=== PATIENT | female | born 1965 | race Caucasian/White ===

== ENCOUNTER 2023-01-17 13:40 | Outpatient (CLI) | payer MEDICARE, BC, SELFPAY ==
--- NOTE | 2023-01-17 14:00 | CRLHL7_ITS ---
For Patients: As a result of the Century Cures Act, medical imaging exams and procedure reports are released immediately into your electronic medical record. You may view this report before your referring provider. If you have questions, please contact your health care provider. DXA BONE MINERAL DENSITY STUDY Current height (in): 60.0. Weight (lb): 180.0. Menopause age: 39. Ethnicity: White. Reason for exam: Osteopenia. 1. Have you had a previous hip or vertebral fracture? No. 2. Have you had any fractures during your adult life which did not result from significant trauma (e.g., auto accident)? No. 3. Did either of your parents have a hip fracture? No. 4. Do you smoke? No. 5. Have you ever taken Glucocorticoids? No. 6. Do you have rheumatoid arthritis? No. 7. Do you have secondary osteoporosis? No. 8. Do you drink 3 or more alcoholic drinks per day? No. 9. Are you being treated for osteoporosis? No. 10. Have you ever taken any of the following medications: Actonel, Evista, Fosamax, Miacalcin, Reclast, Boniva, Forteo, HRT (i.e. estrogen/hormone therapy), Protelos, Prolia, Vitamin D, Calcium, other ??? please specify. ANSWER: Yes, vitamin D, Forteo, HRT, calcium. 11. Do you have any of the following medical conditions: Anorexia or bulimia, asthma or emphysema, end stage renal disease, hyperparathyroidism, any seizure disorders, cancer, inflammatory bowel diseases, hysterectomy, other ??? please specify. ANSWER: Yes, hysterectomy. 12. What was your maximum height (inches)? 60. 13. Do you perform weight bearing exercise regularly? No. 14. Do you regularly consume dairy products? Yes. 15. Do you drink caffeinated beverages? Yes. 16. At what age did your period start? 8. 17. Are you premenopausal? No. 18. How many full term pregnancies have you had? 1. 19. Have you ever missed your period for more than 6 months in a row (not including or menopause)? Yes. TECHNIQUE: Bone mineral density study was performed using the [employer]. FINDINGS: The results of the study expressed as bone mineral density (BMD) are as follows: Neck Left: BMD: 0.669 g/cm2. T-score: -1.6. Z-score: -0.4. Right: BMD: 0.617 g/cm2. T-score: -2.1. Z-score: -0.9. Total Left: BMD: 0.779 g/cm2. T-score: -1.3. Z-score: -0.5. Right: BMD: 0.800 g/cm2. T-score: -1.2. Z-score: -0.3. Radius Left 33%: BMD: 0.629 g/cm2. T-score: -1.1. Z-score: 0.1. IMPRESSION: Osteopenia. FRAX 10-year Fracture Risk Major Osteoporotic Fracture: 8.5 percent Hip Fracture: 1.0 percent Reported Risk Factors: [place] () Neck BMD = 0.617, BMI = 35.2 Db Lemon M.D. Diagnostic Radiologist [email or web address] Transcribed: 9:31 a.m. DW/Dictated by: Db Lemon MD @ 01/18/2023 8:52:00 AM (Electronically Signed)
== END 2023-01-17 13:41 | disposition home or self-care (01) ==
PROVIDERS: PCP Internal Medicine; Visit Provider Internal Medicine
DX: M85.89 Other specified disorders of bone density and structure, multiple sites (principal); Z78.0 Asymptomatic menopausal state
CPT/HCPCS: 77080

== ENCOUNTER 2023-10-15 09:24 | Outpatient (CLI) | payer MEDICARE, BC, SELFPAY | END 2023-10-15 09:25 | disposition home or self-care (01) | LOC: NFLDREF 10-18 13:14 | PROVIDERS: PCP Internal Medicine; Referring Provider Internal Medicine; Visit Provider Internal Medicine | DX: E03.9 Hypothyroidism, unspecified (principal) | CPT/HCPCS: 84443 ==

== ENCOUNTER 2024-04-07 15:26 | Emergency (ER) | payer MEDICARE, BC, SELFPAY ==
[2024-04-07 15:29] VITALS: BP 126/88; PULSE 100; RESP 18; TEMP 36.8; O2SAT 98; BMI 29.3
--- OUTSIDE RECORDS SUMMARY | 2024-04-07 15:38 | XMS_ITS | Clinical Summary ---
Author Name Unknown Organization [employer] [facility] Address [place], [place] [address] Care Team Providers Care Pediatrics Physician Name Role Phone Jaime Velasco MD Primary Care Provider Kristyn Cabrera COMPLETIONS MANAGER Unavailable Bienvenido Winters MD Unavailable [phone] Allergies Active Allergy Reactions Criticality Noted Date Comments Amoxicillin Rash 10/29/2017 Diphenhydramine-Pseudoephed Seizures 12/31/19 15 Codeine Vomiting 12/31/2014 Erythromycin Rash 12/31/2014 Latex Rash 10/05/2018 Morphine Hallucinations 12/31/2014 Medications Medication Sig Dispensed Refills Start Date End Date Status levothyroxine (SYNTHROID) 88 mcg tablet Take 88 mcg by mouth once daily. Active polyethylene glycoL (MIRALAX) 17 gram/dose powderIndications:con stipation Mix 17 grams with 4-8 oz of water, juice or tea, and drink resulting solution daily 527 g 01/06/2015 Active Additional Information Patient taking differently:OralDAILY PRN, Take 4 times per week, Indications: constipation, Reported on 10/05/2018 Cholecalciferol, Vitamin D3, (VITAMIN D-3) 2,000 unit tablet Take 2,000 Units by mouth once daily. Active multivitamin (MVI) tablet Take 1 tablet by mouth once daily. Active estradiol (ESTRACE) 0.1 mg/g vaginal cream Insert 1 g into the vagina. Twice weekly Active ondansetron (ZOFRAN ODT) [address] 4 mg on the tongue 2 times daily if needed for Nausea/Vomiting. Active Melatonin 5 mg tab Take 5 mg by mouth at bedtime. Active clonazePAM (KLONOPIN) 0.5 mg tabletIndications:Chay izoaffective disorder, bipolar type (HC) Take 0.5 tablets by mouth 2 times daily. 60 tablet 07/29/2019 Active QUEtiapine (SEROQUEL XR) 300 mg Extended-Release tabletIndications:Chay izoaffective disorder, bipolar type (HC) Take 3 tablets by mouth at bedtime. 90 tablet 07/29/2019 Active topiramate (TOPAMAX) 50 mg tabletIndications:Chay izoaffective disorder, bipolar type (HC) Take 1 tablet by mouth 2 times daily. 60 tablet 07/29/2019 Active buPROPion (WELLBUTRIN XL) 300 mg Extended-Release tabletIndications:Chay izoaffective disorder, bipolar type (HC) Take 1 tablet by mouth every morning. 30 tablet 07/29/2019 Active lamoTRIgine (LAMICTAL) 200 mg tabletIndications:Chay izoaffective disorder, bipolar type (HC) Take 1 tablet by mouth 2 times daily. 60 tablet 07/29/2019 Active risperiDONE (RISPERDAL) 0.5 mg tabletIndications:Chay izoaffective disorder, bipolar type (HC) Take 1 tablet by mouth 2 times daily. 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 Bipolar disease, chronic 10/05/2018 Prolonged Q-T interval on ECG 10/05/2018 Elevated lactic acid level 10/05/2018 Hypokalemia 10/05/2018 Rhabdomyolysis 10/05/2018 Acute renal failure (ARF) 10/05/2018 Hypothermia associated with environmental change 10/05/2018 Alcohol dependence 01/01/2015 Schizoaffective disorder 01/01/2015 Vitamin D deficiency 01/01/2015 Noncompliance with treatment 01/01/2015 Immunizations Name Administration Dates Next Due Influenza, IIV4 01/02/2015 Family History Medical History Relation Name Comments Diabetes Daughter Diabetes Father Cancer-breast Maternal Grandfather Relation Name Status Comments Daughter Father Maternal Grandfather Social History Tobacco Use Types Packs/Day Years Used Date Smoking Tobacco: Never Smokeless Tobacco: Never Tobacco Cessation:Counseling Given: No Alcohol Use Standard Drinks/Week Comments No 0 (1 standard drink = 0.6 oz pur e alcohol) Sex and Gender Information Value Date Recorded Sex Assigned at Not on file Gender Identity Not on file Sexual Orientation Not on file Obstetrics History Last Filed Vital Signs Vital Sign Reading Time Taken Comments Blood Pressure 150/99 07/29/2019 4:00 PM CDT Pulse 114 07/29/2019 4:00 PM CDT Temperature 36.7 ??C (98 ??F) 07/29/2019 4:00 PM CDT Respiratory Rate 16 07/29/2019 4:00 PM CDT Oxygen Saturation 99% 07/29/2019 4:00 PM CDT Inhaled Oxygen Concentration - - Weight 73.5 kg (162 lb) 07/26/2019 9:00 AM CDT Height 152.4 cm (5') 07/22/2019 7:27 PM CDT Body Mass Index 31.64 07/22/2019 7:27 PM CDT Plan of Treatment Not on file Advance Directives * Full Code (Latest Code Status on File) Date Activated Date Inactivated Comments 07/22/2019 7:21 PM 07/30/2019 1:16 PM Question Answer Comments Code Status Discussion: Not Discussed * Full Code Date Activated Date Inactivated Comments 10/05/2018 11:39 AM 10/07/2018 7:45 PM Question Answer Comments Code Status Discussion: Discussed * Full Code Date Activated Date Inactivated Comments 12/31/2014 8:52 PM 01/06/2015 7:17 PM Care Teams Pediatrics Physician Relationship Specialty Start Date End Date Jaime Velasco MD [address] [place] [id number] PCP - General Internal Medicine 10/05/18 Kristyn Cabrera CNS [address] [place] [address] [place] [id number] Clinical Nurse Specialist 10/05/18 Bienvenido Winters MD [address] [place] [address] [place] [id number] Neurology 10/05/18
--- NOTE | 2024-04-07 15:53 | ED.NURSE ---
talked with poison controlRandal. no concerns at this time. no tests or workup needed
--- NOTE | 2024-04-07 16:10 | ED.GENADULT ---
HPI - General Adult General Chief complaint: Unspecified Complaint, Adult Stated complaint: took her daily meds 2 or 3 times accidently Time Seen by Provider: 04/07/24 15:49 History of Present Illness HPI narrative: This 59-year-old female comes in because she accidentally took her morning medications in the middle of the night apparently and then again at the morning. The worst she arrives now about 8-10 hours later and reports that she is feeling okay except has some jittery feelings at times. Earlier she was feeling some off balance sensation. Related Data Home Medications Medication Instructions Recorded Confirmed aripiprazole 10 mg tablet (Abilify) 10 mg PO QDAY 06/13/22 07/23/23 bupropion HCl 300 mg 24 hr tablet, 300 mg PO QAM 06/13/22 07/23/23 extended release (Wellbutrin XL) cholecalciferol (vitamin D3) 50 50 mcg PO QDAY 06/13/22 07/23/23 mcg (2,000 unit) capsule clozapine 100 mg tablet (Clozaril) 300 mg PO .hs 06/13/22 07/23/23 duloxetine 30 mg capsule,delayed 30 mg PO QDAY 06/13/22 07/23/23 release ferrous sulfate 325 mg (65 mg 325 mg PO .hs 06/13/22 07/23/23 iron) tablet propranolol 10 mg tablet 10 mg PO TID PRN 06/13/22 07/23/23 risperidone 0.5 mg tablet 0.5 mg PO BID 06/13/22 07/23/23 (Risperdal) Previous Rx's Medication Instructions Recorded lamotrigine 150 mg tablet 75 mg (1/2 x 150 mg) PO BID Mood 01/04/23 Disorder #90 tabs levothyroxine 88 mcg tablet 88 mcg PO QDAY Hypothyroidism #90 10/17/23 (Synthroid) tabs donepezil 5 mg tablet 5 mg PO QDAY Memory Loss #90 tabs 12/24/23 lansoprazole 30 mg capsule,delayed 30 mg PO QDAY GERD #90 caps 12/24/23 release topiramate 50 mg tablet (Topamax) 50 mg PO BID #180 tabs 01/17/24 Allergies Allergy/AdvReac Type Severity Reaction Status Date / Time amoxicillin Allergy Severe Rash Verified 07/23/23 10:04 codeine Allergy Severe Nausea Verified 07/23/23 10:04 diphenhydramine Allergy Severe Seizure Verified 07/23/23 10:04 latex Allergy Severe red, Verified 07/23/23 10:04 burning skin morphine Allergy Mild Hallucinati Verified 07/23/23 10:04 ng banana Allergy Unknown Verified 07/23/23 10:04 fluoxetine AdvReac Severe aggression Verified 07/23/23 10:04 lurasidone AdvReac Severe Joint Pain Verified 07/23/23 10:04 Erythromycin Allergy Severe Rash Uncoded 07/23/23 10:04 Review of Systems Status of ROS: Reports: 10 or more systems reviewed and unremarkable except as noted in History and below Narrative: Constitutional: No fevers, no weight gain or loss. Eyes: No discharge. No vision changes. HENT: No congestion, no sore throat, no ear pain. Cardiovascular: No chest pain, no palpitations. Respiratory: No shortness of breath, no wheezes, no cough. Gastrointestinal: No abdominal pain, no vomiting, no diarrhea. Genitourinary: No dysuria, no hematuria. Musculoskeletal: Normal range of motion. Skin: No rashes, no pruritis. Neurological: No dizziness, weakness, sensory change, speech change. Endo/Heme/Allergies: No bruising or bleeding. No polydipsia. Pysch: no suicidality, no anxiety, no insomnia. All other systems reviewed and are negative. 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) ?Z86.19 - Personal history of other infectious and parasitic diseases (ICD-10) History of bulimia nervosa ?Z86.59 - Personal history of other mental and behavioral disorders (ICD-10) Encounter for screening for severe acute respiratory syndrome coronavirus 2 (SARS-CoV-2) infection ?Z11.52 - Encounter for screening for COVID-19 (ICD-10) Surgical History (Updated 06/11/22 @ 14:48 by Ashley Palacios) History of hysterectomy ?Z90.710 - Acquired absence of both cervix and uterus (ICD-10) History of fusion of lumbar spine ?Z98.1 - Arthrodesis status (ICD-10) History of colonoscopy with polypectomy ?Z98.890 - Other specified postprocedural states (ICD-10) ?Z86.010 - Personal history of colonic polyps (ICD-10) History of breast biopsy ?Z98.890 - Other specified postprocedural states (ICD-10) History of bilateral oophorectomy ?Z90.722 - Acquired absence of ovaries, bilateral (ICD-10) Family History (Updated 06/08/22 @ 13:39 by González Saul) Paternal Grandmother Breast cancer Maternal Grandmother Cancer Family/Other Colon cancer Father Coronary artery disease Diabetes High blood pressure Mental disorder Mother Mental disorder Social History Smoking Status: Never smoker Little interest or pleasure in doing things: several days Feeling down, depressed, or hopeless: more than half the days Exam Narrative: Exam Narrative: Constitutional: Well-developed, well-nourished, no acute distress. HEENT: Normocephalic, atraumatic. Neck: Normal range of motion. Nontender. Supple. Heart: Regular. No murmurs. Normal rate. Intact distal pulses. Lungs: Clear to auscultation. No chest discomfort. No wheezes, rhonchi, or rales. Abdomen: Normal bowel sounds. Nontender. No rebound tenderness. Genitalia: Deferred. Back: No midline tenderness. Normal range of motion. Extremities: Normal range of motion. No injury. Skin: Intact. No rash. Warm. No erythema or pallor. Neurologic: No altered sensation. No weakness. Alert and oriented. Psychiatric: No suicidality. No anxiety or depression. No insomnia. Nursing notes and vitals signs are reviewed. Const: Vital Signs, click to edit/add: Vital Signs - 24 hr 04/07/24 15:29 Temperature 98.2 F Pulse Rate [Right Pulse Oximeter] 100 Respiratory Rate 18 Blood Pressure [Ri ght Upper Arm] 126/88 Pulse Oximetry 98 Oxygen Delivery Me thod Room Air Course Vital Signs Vital signs: Initial Vital Signs Temperature 98.2 F 04/07/24 15:29 Temperature Source Temporal Artery Scan 04/07/24 15:29 Pulse Rate 100 04/07/24 15:29 Respiratory Rate 18 04/07/24 15:29 Blood Pressure 126/88 04/07/24 15:29 Blood Pressure Mean 100 04/07/24 15:29 Blood Pressure Position Sitting 04/07/24 15:29 Pulse Oximetry 98 04/07/24 15:29 Oxygen Delivery Method Room Air 04/07/24 15:29 Vital Signs Temperature 98.2 F 04/07/24 15:29 Pulse Rate 100 04/07/24 15:29 Respiratory Rate 18 04/07/24 15:29 Blood Pressure 126/88 04/07/24 15:29 Pulse Oximetry 98 04/07/24 15:29 Oxygen Delivery Method Room Air 04/07/24 15:29 Temperature 98.2 F 04/07/24 15:29 Pulse Rate 100 04/07/24 15:29 Respiratory Rate 18 04/07/24 15:29 Blood Pressure 126/88 04/07/24 15:29 Pulse Oximetry 98 04/07/24 15:29 Oxygen Delivery Method Room Air 04/07/24 15:29 Medical Decision Making MDM Narrative Medical decision making narrative: This patient comes in with concern about taking an extra dose or 2 of her regular medications. He these medications include Synthroid, Topamax, lamotrigine, Abilify, bupropion, and clozaril. Poison control was contacted regarding the dosing and these particular medications in the time when they were ingested. There is no concern currently. The claws a real may cause some dizziness but this would resolve by 6 hours post ingestion. This visit is well past that time frame and the patient states that she did feel some dizziness but now feels better. She is greatly relieved that there is no consequence to taking these extra pills. She is okay to be discharged home and advised to resume her medications as scheduled. Discharge Plan Discharge Clinical Impression: Accidental medication overdose Patient Disposition: Home w/ Parent or Adult Condition: Stable Additional Instructions: Continue current medications as prescribed. Follow up with MD or return if worsening. Prescriptions: No Action clozapine [Clozaril] 100 mg tablet 300 mg PO .hs cholecalciferol (vitamin D3) 50 mcg (2,000 unit) capsule 50 mcg PO QDAY bupropion HCl [Wellbutrin XL] 300 mg tablet extended release 24 hr 300 mg PO QAM duloxetine 30 mg capsule,delayed release(DR/EC) 30 mg PO QDAY ferrous sulfate 325 mg (65 mg iron) tablet 325 mg PO .hs propranolol 10 mg tablet 10 mg PO TID PRN risperidone [Risperdal] 0.5 mg tablet 0.5 mg PO BID aripiprazole [Abilify] 10 mg tablet 10 mg PO QDAY lamotrigine 150 mg tablet 75 mg PO BID Qty: 90 3RF levothyroxine [Synthroid] 88 mcg tablet 88 mcg PO QDAY Qty: 90 3RF lansoprazole 30 mg capsule,delayed release(DR/EC) 30 mg PO QDAY Qty: 90 1RF donepezil 5 mg tablet 5 mg PO QDAY Qty: 90 1RF topiramate [Topamax] 50 mg tablet 50 mg PO BID Qty: 180 2RF Follow Up/Referrals: Jaime Velasco MD [Primary Care Provider] - Stand Alone Forms: [facility] Info Instructions
--- OUTSIDE RECORDS SUMMARY | 2024-04-07 16:33 | XMS_ITS | Clinical Summary ---
Author Name Unknown Organization [employer] [facility] Address [place], [place] [address] Care Team Providers Care Dictaphone Mechanic Name Role Phone Jaime Velasco MD Primary Care Provider Kristyn Cabrera LICENSED ESTHETICIAN Unavailable Bienvenido Winters MD Unavailable [phone] Allergies Active Allergy Reactions Criticality Noted [...] 8:52 PM 01/06/2015 7:17 PM Care Teams Dictaphone Mechanic Relationship Specialty Start Date End Date Jaime Velasco MD [address] [place] [id number] PCP - General Internal Medicine 10/05/18 Kristyn Cabrera CNS [address] [place] [address] [place] [id number] Clinical Nurse Specialist 10/05/18 Bienvenido Winters MD [address] [place] [address] [address] [place] [id number] Neurology 10/05/18
== END 2024-04-07 16:37 | disposition home or self-care (01) ==
LOC: ED 16:30
PROVIDERS: Emergency Provider Emergency Medicine Emergency Medical Services; PCP Internal Medicine
DX: T65.91XA Toxic effect of unspecified substance, accidental (unintentional), initial encounter (principal)
CPT/HCPCS: 99283; 99284

== ENCOUNTER 2024-09-04 10:34 | Outpatient (RCR) | payer MEDICARE, BC, SELFPAY ==
[2022-06-13 09:52] LABS: Basophils Absolute Auto 0.04 K/uL (0.00-0.30); Basophils Percent Auto 0.7 % (0.0-3.0); Hematocrit 40.7 % (33.0-51.0); Hemoglobin* 13.1 gm/dL (12.0-16.0); Lymphocytes Absolute Auto 1.45 K/uL (0.90-2.90); Lymphocytes Percent Auto 25.1 % (20-44); Mean Corpuscular HGB Conc 32 gm/dL (32-36); Mean Corpuscular Hemoglobin 32 pg (26-34); Mean Corpuscular Volume 100 fL (80-100); Monocytes Percent Auto 7.8 % (0.0-11.0); Neutrophils Absolute Auto 3.84 K/uL (1.7-7.0); Neutrophils Percent Auto 66.4 % (42.0-72.0); Platelet Count* 270 K/uL (140-440); RDW Coefficient of Variation % 13.2 % (11.5-15.5); Red Blood Count 4.07 m/uL (4.00-5.20); White Blood Count* 5.78 K/uL (4.50-11.00)
[2022-06-13 09:57] LABS: Slide Review Reflex No
[2022-07-12 13:30] LABS: Basophils Percent Auto 0.8 % (0.0-3.0); Hematocrit 41.1 % (33.0-51.0); Hemoglobin* 13.2 gm/dL (12.0-16.0); Lymphocytes Percent Auto 29.2 % (20-44); Mean Corpuscular HGB Conc 32 gm/dL (32-36); Mean Corpuscular Hemoglobin 32 pg (26-34); Mean Corpuscular Volume 100 fL (80-100); Monocytes Percent Auto 6.2 % (0.0-11.0); Neutrophils Percent Auto 63.6 % (42.0-72.0); Platelet Count* 287 K/uL (140-440); Red Blood Count 4.13 m/uL (4.00-5.20); White Blood Count* 6.44 K/uL (4.50-11.00)
[2022-07-12 13:31] LABS: Immature Granulocytes Pct Auto 0.2 %; Slide Review Reflex No
[2022-08-10 11:10] LABS: Basophils Absolute Auto 0.07 K/uL (0.00-0.30); Basophils Percent Auto 0.6 % (0.0-3.0); Hematocrit 40.8 % (33.0-51.0); Hemoglobin* 13.2 gm/dL (12.0-16.0); Immature Granulocytes Abs Auto 0.02 K/uL (0.00-0.30); Lymphocytes Percent Auto 16.5 % (20-44); Mean Corpuscular HGB Conc 32 gm/dL (32-36); Mean Corpuscular Hemoglobin 32 pg (26-34); Mean Corpuscular Volume 100 fL (80-100); Neutrophils Percent Auto 77.7 % (42.0-72.0); Platelet Count* 282 K/uL (140-440); RDW Coefficient of Variation % 13.5 % (11.5-15.5); Red Blood Count 4.09 m/uL (4.00-5.20); White Blood Count* 10.82 K/uL (4.50-11.00)
[2022-08-10 11:13] LABS: Slide Review Reflex No
[2022-09-07 11:02] LABS: Basophils Absolute Auto 0.05 K/uL (0.00-0.30); Basophils Percent Auto 0.9 % (0.0-3.0); Hemoglobin* 13.1 gm/dL (12.0-16.0); Immature Granulocytes Abs Auto 0.01 K/uL (0.00-0.30); Lymphocytes Absolute Auto 1.37 K/uL (0.90-2.90); Lymphocytes Percent Auto 24.4 % (20-44); Mean Corpuscular HGB Conc 32 gm/dL (32-36); Mean Corpuscular Hemoglobin 32 pg (26-34); Mean Corpuscular Volume 101 fL (80-100); Monocytes Percent Auto 6.4 % (0.0-11.0); Neutrophils Absolute Auto 3.82 K/uL (1.7-7.0); Neutrophils Percent Auto 68.1 % (42.0-72.0); Platelet Count* 285 K/uL (140-440); RDW Coefficient of Variation % 13.4 % (11.5-15.5); Red Blood Count 4.08 m/uL (4.00-5.20); White Blood Count* 5.61 K/uL (4.50-11.00)
[2022-09-07 11:04] LABS: Slide Review Reflex No
[2022-10-04 11:39] LABS: Basophils Absolute Auto 0.04 K/uL (0.00-0.30); Basophils Percent Auto 0.7 % (0.0-3.0); Hematocrit 39.4 % (33.0-51.0); Hemoglobin* 12.7 gm/dL (12.0-16.0); Immature Granulocytes Abs Auto 0.01 K/uL (0.00-0.30); Immature Granulocytes Pct Auto 0.2 %; Lymphocytes Absolute Auto 1.71 K/uL (0.90-2.90); Lymphocytes Percent Auto 28.3 % (20-44); Mean Corpuscular HGB Conc 32 gm/dL (32-36); Mean Corpuscular Hemoglobin 32 pg (26-34); Mean Corpuscular Volume 101 fL (80-100); Monocytes Percent Auto 6.4 % (0.0-11.0); Neutrophils Percent Auto 64.4 % (42.0-72.0); Platelet Count* 283 K/uL (140-440); RDW Coefficient of Variation % 13.8 % (11.5-15.5); Red Blood Count 3.92 m/uL (4.00-5.20); White Blood Count* 6.05 K/uL (4.50-11.00)
[2022-10-04 11:41] LABS: Slide Review Reflex No
[2022-11-02 11:29] LABS: Basophils Absolute Auto 0.04 K/uL (0.00-0.30); Basophils Percent Auto 0.6 % (0.0-3.0); Hematocrit 41.4 % (33.0-51.0); Hemoglobin* 13.3 gm/dL (12.0-16.0); Immature Granulocytes Abs Auto 0.01 K/uL (0.00-0.30); Immature Granulocytes Pct Auto 0.2 %; Lymphocytes Absolute Auto 1.96 K/uL (0.90-2.90); Lymphocytes Percent Auto 30.4 % (20-44); Mean Corpuscular HGB Conc 32 gm/dL (32-36); Mean Corpuscular Hemoglobin 32 pg (26-34); Mean Corpuscular Volume 100 fL (80-100); Monocytes Percent Auto 5.7 % (0.0-11.0); Neutrophils Absolute Auto 4.07 K/uL (1.7-7.0); Neutrophils Percent Auto 63.1 % (42.0-72.0); Platelet Count* 271 K/uL (140-440); RDW Coefficient of Variation % 13.3 % (11.5-15.5); Red Blood Count 4.15 m/uL (4.00-5.20); White Blood Count* 6.45 K/uL (4.50-11.00)
[2022-11-02 11:44] LABS: Slide Review Reflex No
[2022-11-29 09:55] LABS: Basophils Absolute Auto 0.05 K/uL (0.00-0.30); Hematocrit 41.7 % (33.0-51.0); Hemoglobin* 13.6 gm/dL (12.0-16.0); Lymphocytes Absolute Auto 1.55 K/uL (0.90-2.90); Lymphocytes Percent Auto 32.4 % (20-44); Mean Corpuscular HGB Conc 33 gm/dL (32-36); Mean Corpuscular Hemoglobin 32 pg (26-34); Mean Corpuscular Volume 99 fL (80-100); Monocytes Percent Auto 7.9 % (0.0-11.0); Neutrophils Percent Auto 58.7 % (42.0-72.0); Platelet Count* 295 K/uL (140-440); RDW Coefficient of Variation % 13.1 % (11.5-15.5); White Blood Count* 4.78 K/uL (4.50-11.00)
[2022-11-29 09:59] LABS: Slide Review Reflex No
[2022-12-27 10:35] LABS: Basophils Absolute Auto 0.04 K/uL (0.00-0.30); Basophils Percent Auto 0.6 % (0.0-3.0); Hemoglobin* 13.3 gm/dL (12.0-16.0); Immature Granulocytes Abs Auto 0.01 K/uL (0.00-0.30); Immature Granulocytes Pct Auto 0.1 %; Lymphocytes Absolute Auto 1.68 K/uL (0.90-2.90); Lymphocytes Percent Auto 24.1 % (20-44); Mean Corpuscular HGB Conc 32 gm/dL (32-36); Mean Corpuscular Hemoglobin 32 pg (26-34); Mean Corpuscular Volume 100 fL (80-100); Monocytes Percent Auto 5.3 % (0.0-11.0); Neutrophils Absolute Auto 4.86 K/uL (1.7-7.0); Neutrophils Percent Auto 69.9 % (42.0-72.0); Platelet Count* 288 K/uL (140-440); RDW Coefficient of Variation % 13.3 % (11.5-15.5); White Blood Count* 6.96 K/uL (4.50-11.00)
[2022-12-27 10:36] LABS: Slide Review Reflex No
[2023-01-28 09:57] LABS: Basophils Percent Auto 0.5 % (0.0-3.0); Hemoglobin* 13.6 gm/dL (12.0-16.0); Immature Granulocytes Pct Auto 0.3 %; Lymphocytes Percent Auto 41.5 % (20-44); Mean Corpuscular HGB Conc 32 gm/dL (32-36); Mean Corpuscular Hemoglobin 32 pg (26-34); Mean Corpuscular Volume 101 fL (80-100); Monocytes Percent Auto 8.2 % (0.0-11.0); Neutrophils Percent Auto 49.5 % (42.0-72.0); Platelet Count* 236 K/uL (140-440); RDW Coefficient of Variation % 13.5 % (11.5-15.5); Red Blood Count 4.25 m/uL (4.00-5.20); White Blood Count* 3.78 K/uL (4.50-11.00)
[2023-01-28 10:14] LABS: Slide Review Reflex No
[2023-02-20 12:20] LABS: Basophils Absolute Auto 0.03 K/uL (0.00-0.30); Basophils Percent Auto 0.5 % (0.0-3.0); Hematocrit 40.7 % (33.0-51.0); Hemoglobin* 13.2 gm/dL (12.0-16.0); Lymphocytes Absolute Auto 1.48 K/uL (0.90-2.90); Lymphocytes Percent Auto 26.4 % (20-44); Mean Corpuscular HGB Conc 32 gm/dL (32-36); Mean Corpuscular Hemoglobin 32 pg (26-34); Mean Corpuscular Volume 99 fL (80-100); Monocytes Percent Auto 7.1 % (0.0-11.0); Platelet Count* 248 K/uL (140-440); RDW Coefficient of Variation % 13.5 % (11.5-15.5); White Blood Count* 5.61 K/uL (4.50-11.00)
[2023-02-20 12:25] LABS: Slide Review Reflex No
[2023-03-21 12:46] LABS: Basophils Absolute Auto 0.04 K/uL (0.00-0.30); Basophils Percent Auto 0.9 % (0.0-3.0); Hemoglobin* 13.5 gm/dL (12.0-16.0); Immature Granulocytes Abs Auto 0.01 K/uL (0.00-0.30); Immature Granulocytes Pct Auto 0.2 %; Lymphocytes Absolute Auto 1.66 K/uL (0.90-2.90); Lymphocytes Percent Auto 35.9 % (20-44); Mean Corpuscular HGB Conc 32 gm/dL (32-36); Mean Corpuscular Hemoglobin 32 pg (26-34); Mean Corpuscular Volume 100 fL (80-100); Monocytes Percent Auto 5.4 % (0.0-11.0); Neutrophils Absolute Auto 2.67 K/uL (1.7-7.0); Neutrophils Percent Auto 57.6 % (42.0-72.0); Platelet Count* 290 K/uL (140-440); RDW Coefficient of Variation % 13.3 % (11.5-15.5); Red Blood Count 4.21 m/uL (4.00-5.20); White Blood Count* 4.63 K/uL (4.50-11.00)
[2023-03-21 12:50] LABS: Slide Review Reflex No
[2023-04-18 15:35] LABS: Basophils Absolute Auto 0.04 K/uL (0.00-0.30); Basophils Percent Auto 0.8 % (0.0-3.0); Hematocrit 40.6 % (33.0-51.0); Hemoglobin* 13.1 gm/dL (12.0-16.0); Immature Granulocytes Abs Auto 0.02 K/uL (0.00-0.30); Immature Granulocytes Pct Auto 0.4 %; Lymphocytes Percent Auto 33.1 % (20-44); Mean Corpuscular HGB Conc 32 gm/dL (32-36); Mean Corpuscular Hemoglobin 32 pg (26-34); Mean Corpuscular Volume 100 fL (80-100); Monocytes Percent Auto 6.6 % (0.0-11.0); Neutrophils Absolute Auto 3.03 K/uL (1.7-7.0); Neutrophils Percent Auto 59.1 % (42.0-72.0); Platelet Count* 254 K/uL (140-440); RDW Coefficient of Variation % 13.6 % (11.5-15.5); Red Blood Count 4.05 m/uL (4.00-5.20); White Blood Count* 5.13 K/uL (4.50-11.00)
[2023-04-18 15:36] LABS: Slide Review Reflex No
[2023-05-16 12:53] LABS: Basophils Absolute Auto 0.04 K/uL (0.00-0.30); Basophils Percent Auto 0.8 % (0.0-3.0); Hematocrit 40.6 % (33.0-51.0); Lymphocytes Percent Auto 36.7 % (20-44); Mean Corpuscular HGB Conc 32 gm/dL (32-36); Mean Corpuscular Hemoglobin 32 pg (26-34); Mean Corpuscular Volume 100 fL (80-100); Monocytes Percent Auto 6.4 % (0.0-11.0); Neutrophils Absolute Auto 2.91 K/uL (1.7-7.0); Neutrophils Percent Auto 56.1 % (42.0-72.0); Platelet Count* 276 K/uL (140-440); RDW Coefficient of Variation % 13.4 % (11.5-15.5); Red Blood Count 4.08 m/uL (4.00-5.20); White Blood Count* 5.18 K/uL (4.50-11.00)
[2023-05-16 12:55] LABS: Slide Review Reflex No
[2023-06-14 11:26] LABS: Basophils Absolute Auto 0.03 K/uL (0.00-0.30); Basophils Percent Auto 0.5 % (0.0-3.0); Hematocrit 39.6 % (33.0-51.0); Hemoglobin* 12.7 gm/dL (12.0-16.0); Immature Granulocytes Abs Auto 0.01 K/uL (0.00-0.30); Immature Granulocytes Pct Auto 0.2 %; Lymphocytes Absolute Auto 1.61 K/uL (0.90-2.90); Lymphocytes Percent Auto 27.2 % (20-44); Mean Corpuscular HGB Conc 32 gm/dL (32-36); Mean Corpuscular Hemoglobin 32 pg (26-34); Mean Corpuscular Volume 100 fL (80-100); Monocytes Percent Auto 8.6 % (0.0-11.0); Neutrophils Absolute Auto 3.77 K/uL (1.7-7.0); Neutrophils Percent Auto 63.5 % (42.0-72.0); Platelet Count* 282 K/uL (140-440); RDW Coefficient of Variation % 13.6 % (11.5-15.5); Red Blood Count 3.95 m/uL (4.00-5.20); White Blood Count* 5.93 K/uL (4.50-11.00)
[2023-06-14 11:29] LABS: Slide Review Reflex No
[2023-07-12 11:10] LABS: Basophils Absolute Auto 0.03 K/uL (0.00-0.30); Basophils Percent Auto 0.4 % (0.0-3.0); Hematocrit 41.4 % (33.0-51.0); Hemoglobin* 13.2 gm/dL (12.0-16.0); Immature Granulocytes Abs Auto 0.01 K/uL (0.00-0.30); Immature Granulocytes Pct Auto 0.1 %; Lymphocytes Absolute Auto 1.66 K/uL (0.90-2.90); Lymphocytes Percent Auto 23.4 % (20-44); Mean Corpuscular HGB Conc 32 gm/dL (32-36); Mean Corpuscular Hemoglobin 32 pg (26-34); Mean Corpuscular Volume 100 fL (80-100); Monocytes Percent Auto 6.5 % (0.0-11.0); Neutrophils Absolute Auto 4.94 K/uL (1.7-7.0); Neutrophils Percent Auto 69.6 % (42.0-72.0); Platelet Count* 296 K/uL (140-440); RDW Coefficient of Variation % 13.3 % (11.5-15.5); Red Blood Count 4.14 m/uL (4.00-5.20)
[2023-07-12 11:16] LABS: Slide Review Reflex No
[2023-08-07 16:03] LABS: Basophils Absolute Auto 0.04 K/uL (0.00-0.30); Basophils Percent Auto 0.7 % (0.0-3.0); Eosinophils Absolute Auto 0.01 K/uL (0.00-0.50); Eosinophils Percent Auto 0.2 % (0.0-7.0); Hematocrit 39.4 % (33.0-51.0); Hemoglobin* 12.6 gm/dL (12.0-16.0); Immature Granulocytes Abs Auto 0.01 K/uL (0.00-0.30); Immature Granulocytes Pct Auto 0.2 %; Lymphocytes Absolute Auto 1.97 K/uL (0.90-2.90); Lymphocytes Percent Auto 33.4 % (20-44); Mean Corpuscular HGB Conc 32 gm/dL (32-36); Mean Corpuscular Hemoglobin 32 pg (26-34); Mean Corpuscular Volume 101 fL (80-100); Monocytes Percent Auto 5.1 % (0.0-11.0); Neutrophils Absolute Auto 3.56 K/uL (1.7-7.0); Neutrophils Percent Auto 60.4 % (42.0-72.0); Platelet Count* 259 K/uL (140-440); RDW Coefficient of Variation % 13.7 % (11.5-15.5); Red Blood Count 3.91 m/uL (4.00-5.20); White Blood Count* 5.89 K/uL (4.50-11.00)
[2023-08-07 16:06] LABS: Slide Review Reflex No
[2023-09-05 11:10] LABS: Basophils Absolute Auto 0.03 K/uL (0.00-0.30); Basophils Percent Auto 0.4 % (0.0-3.0); Eosinophils Absolute Auto 0.01 K/uL (0.00-0.50); Eosinophils Percent Auto 0.1 % (0.0-7.0); Hematocrit 38.6 % (33.0-51.0); Hemoglobin* 12.5 gm/dL (12.0-16.0); Lymphocytes Absolute Auto 1.61 K/uL (0.90-2.90); Mean Corpuscular HGB Conc 32 gm/dL (32-36); Mean Corpuscular Hemoglobin 32 pg (26-34); Mean Corpuscular Volume 100 fL (80-100); Monocytes Percent Auto 4.9 % (0.0-11.0); Neutrophils Absolute Auto 5.02 K/uL (1.7-7.0); Neutrophils Percent Auto 71.6 % (42.0-72.0); Platelet Count* 260 K/uL (140-440); RDW Coefficient of Variation % 13.2 % (11.5-15.5); Red Blood Count 3.87 m/uL (4.00-5.20); White Blood Count* 7.01 K/uL (4.50-11.00)
[2023-09-05 11:15] LABS: Slide Review Reflex No
[2023-10-04 11:23] LABS: Basophils Absolute Auto 0.03 K/uL (0.00-0.30); Basophils Percent Auto 0.6 % (0.0-3.0); Hematocrit 40.6 % (33.0-51.0); Immature Granulocytes Abs Auto 0.03 K/uL (0.00-0.30); Immature Granulocytes Pct Auto 0.6 %; Lymphocytes Absolute Auto 1.85 K/uL (0.90-2.90); Mean Corpuscular HGB Conc 32 gm/dL (32-36); Mean Corpuscular Hemoglobin 33 pg (26-34); Mean Corpuscular Volume 102 fL (80-100); Monocytes Percent Auto 7.4 % (0.0-11.0); Neutrophils Absolute Auto 2.85 K/uL (1.7-7.0); Neutrophils Percent Auto 55.4 % (42.0-72.0); Platelet Count* 288 K/uL (140-440); RDW Coefficient of Variation % 13.4 % (11.5-15.5); White Blood Count* 5.14 K/uL (4.50-11.00)
[2023-10-04 11:29] LABS: Slide Review Reflex No
[2023-11-01 11:03] LABS: Basophils Absolute Auto 0.03 K/uL (0.00-0.30); Basophils Percent Auto 0.3 % (0.0-3.0); Hematocrit 37.9 % (33.0-51.0); Hemoglobin* 12.1 gm/dL (12.0-16.0); Immature Granulocytes Abs Auto 0.01 K/uL (0.00-0.30); Immature Granulocytes Pct Auto 0.1 %; Lymphocytes Absolute Auto 1.97 K/uL (0.90-2.90); Mean Corpuscular HGB Conc 32 gm/dL (32-36); Mean Corpuscular Hemoglobin 32 pg (26-34); Mean Corpuscular Volume 101 fL (80-100); Monocytes Percent Auto 6.5 % (0.0-11.0); Neutrophils Absolute Auto 6.36 K/uL (1.7-7.0); Neutrophils Percent Auto 71.1 % (42.0-72.0); Platelet Count* 283 K/uL (140-440); RDW Coefficient of Variation % 13.1 % (11.5-15.5); Red Blood Count 3.77 m/uL (4.00-5.20); White Blood Count* 8.95 K/uL (4.50-11.00)
[2023-11-01 11:16] LABS: Slide Review Reflex No
[2023-11-29 09:14] LABS: Basophils Absolute Auto 0.04 K/uL (0.00-0.30); Basophils Percent Auto 0.8 % (0.0-3.0); Hematocrit 39.7 % (33.0-51.0); Hemoglobin* 12.7 gm/dL (12.0-16.0); Immature Granulocytes Abs Auto 0.03 K/uL (0.00-0.30); Immature Granulocytes Pct Auto 0.6 %; Lymphocytes Absolute Auto 1.71 K/uL (0.90-2.90); Lymphocytes Percent Auto 32.2 % (20-44); Mean Corpuscular HGB Conc 32 gm/dL (32-36); Mean Corpuscular Hemoglobin 33 pg (26-34); Mean Corpuscular Volume 102 fL (80-100); Monocytes Percent Auto 8.7 % (0.0-11.0); Neutrophils Absolute Auto 3.07 K/uL (1.7-7.0); Neutrophils Percent Auto 57.7 % (42.0-72.0); Platelet Count* 285 K/uL (140-440); RDW Coefficient of Variation % 13.4 % (11.5-15.5); Red Blood Count 3.91 m/uL (4.00-5.20); White Blood Count* 5.31 K/uL (4.50-11.00)
[2023-11-29 09:18] LABS: Slide Review Reflex No
[2023-12-26 11:19] LABS: Basophils Absolute Auto 0.05 K/uL (0.00-0.30); Basophils Percent Auto 0.6 % (0.0-3.0); Hematocrit 41.8 % (33.0-51.0); Hemoglobin* 13.2 gm/dL (12.0-16.0); Immature Granulocytes Abs Auto 0.01 K/uL (0.00-0.30); Immature Granulocytes Pct Auto 0.1 %; Lymphocytes Absolute Auto 1.86 K/uL (0.90-2.90); Lymphocytes Percent Auto 20.7 % (20-44); Mean Corpuscular HGB Conc 32 gm/dL (32-36); Mean Corpuscular Hemoglobin 32 pg (26-34); Mean Corpuscular Volume 102 fL (80-100); Monocytes Percent Auto 4.7 % (0.0-11.0); Neutrophils Percent Auto 73.9 % (42.0-72.0); Platelet Count* 296 K/uL (140-440); RDW Coefficient of Variation % 13.3 % (11.5-15.5); Red Blood Count 4.11 m/uL (4.00-5.20); White Blood Count* 8.97 K/uL (4.50-11.00)
[2023-12-26 11:20] LABS: Slide Review Reflex No
[2024-01-23 10:55] LABS: Hematocrit 40.6 % (33.0-51.0); Hemoglobin* 13.1 gm/dL (12.0-16.0); Mean Corpuscular HGB Conc 32 gm/dL (32-36); Mean Corpuscular Hemoglobin 33 pg (26-34); Mean Corpuscular Volume 101 fL (80-100); Platelet Count* 276 K/uL (140-440); RDW Coefficient of Variation % 13.1 % (11.5-15.5); Red Blood Count 4.02 m/uL (4.00-5.20); White Blood Count* 5.52 K/uL (4.50-11.00)
[2024-01-23 10:56] LABS: Basophils Absolute Auto 0.03 K/uL (0.00-0.30); Basophils Percent Auto 0.5 % (0.0-3.0); Immature Granulocytes Abs Auto 0.01 K/uL (0.00-0.30); Immature Granulocytes Pct Auto 0.2 %; Lymphocytes Absolute Auto 1.83 K/uL (0.90-2.90); Lymphocytes Percent Auto 33.2 % (20-44); Monocytes Percent Auto 6.3 % (0.0-11.0); Neutrophils Percent Auto 59.8 % (42.0-72.0)
[2024-01-23 11:01] LABS: Slide Review Reflex No
[2024-02-20 10:43] LABS: Basophils Absolute Auto 0.03 K/uL (0.00-0.30); Basophils Percent Auto 0.3 % (0.0-3.0); Hematocrit 41.5 % (33.0-51.0); Hemoglobin* 13.4 gm/dL (12.0-16.0); Immature Granulocytes Abs Auto 0.03 K/uL (0.00-0.30); Immature Granulocytes Pct Auto 0.3 %; Lymphocytes Percent Auto 16.1 % (20-44); Mean Corpuscular HGB Conc 32 gm/dL (32-36); Mean Corpuscular Hemoglobin 33 pg (26-34); Mean Corpuscular Volume 101 fL (80-100); Monocytes Percent Auto 7.4 % (0.0-11.0); Neutrophils Percent Auto 75.9 % (42.0-72.0); Platelet Count* 275 K/uL (140-440); Red Blood Count 4.11 m/uL (4.00-5.20)
[2024-02-20 10:47] LABS: Slide Review Reflex No
[2024-03-19 10:53] LABS: Basophils Absolute Auto 0.03 K/uL (0.00-0.30); Basophils Percent Auto 0.6 % (0.0-3.0); Hematocrit 42.8 % (33.0-51.0); Hemoglobin* 13.5 gm/dL (12.0-16.0); Lymphocytes Absolute Auto 1.51 K/uL (0.90-2.90); Lymphocytes Percent Auto 30.3 % (20-44); Mean Corpuscular HGB Conc 32 gm/dL (32-36); Mean Corpuscular Hemoglobin 32 pg (26-34); Mean Corpuscular Volume 102 fL (80-100); Monocytes Percent Auto 6.4 % (0.0-11.0); Neutrophils Absolute Auto 3.13 K/uL (1.7-7.0); Neutrophils Percent Auto 62.7 % (42.0-72.0); Platelet Count* 270 K/uL (140-440); RDW Coefficient of Variation % 13.4 % (11.5-15.5); Red Blood Count 4.19 m/uL (4.00-5.20); White Blood Count* 4.99 K/uL (4.50-11.00)
[2024-03-19 11:01] LABS: Slide Review Reflex No
[2024-04-16 10:54] LABS: Basophils Absolute Auto 0.03 K/uL (0.00-0.30); Basophils Percent Auto 0.4 % (0.0-3.0); Hematocrit 40.6 % (33.0-51.0); Immature Granulocytes Abs Auto 0.01 K/uL (0.00-0.30); Immature Granulocytes Pct Auto 0.1 %; Mean Corpuscular HGB Conc 32 gm/dL (32-36); Mean Corpuscular Hemoglobin 32 pg (26-34); Mean Corpuscular Volume 101 fL (80-100); Monocytes Percent Auto 5.6 % (0.0-11.0); Neutrophils Percent Auto 74.9 % (42.0-72.0); Platelet Count* 264 K/uL (140-440); RDW Coefficient of Variation % 13.5 % (11.5-15.5); Red Blood Count 4.03 m/uL (4.00-5.20); White Blood Count* 8.32 K/uL (4.50-11.00)
[2024-04-16 11:01] LABS: Slide Review Reflex No
[2024-05-14 13:14] LABS: Basophils Absolute Auto 0.03 K/uL (0.00-0.30); Basophils Percent Auto 0.4 % (0.0-3.0); Hematocrit 41.7 % (33.0-51.0); Hemoglobin* 13.4 gm/dL (12.0-16.0); Immature Granulocytes Abs Auto 0.01 K/uL (0.00-0.30); Immature Granulocytes Pct Auto 0.1 %; Lymphocytes Absolute Auto 1.72 K/uL (0.90-2.90); Lymphocytes Percent Auto 24.1 % (20-44); Mean Corpuscular HGB Conc 32 gm/dL (32-36); Mean Corpuscular Hemoglobin 32 pg (26-34); Mean Corpuscular Volume 101 fL (80-100); Monocytes Percent Auto 5.8 % (0.0-11.0); Neutrophils Absolute Auto 4.96 K/uL (1.7-7.0); Neutrophils Percent Auto 69.6 % (42.0-72.0); Platelet Count* 279 K/uL (140-440); RDW Coefficient of Variation % 13.5 % (11.5-15.5); Red Blood Count 4.13 m/uL (4.00-5.20); White Blood Count* 7.13 K/uL (4.50-11.00)
[2024-05-14 13:19] LABS: Slide Review Reflex No
[2024-06-12 11:24] LABS: Basophils Absolute Auto 0.04 K/uL (0.00-0.30); Basophils Percent Auto 0.6 % (0.0-3.0); Hematocrit 41.5 % (33.0-51.0); Hemoglobin* 13.3 gm/dL (12.0-16.0); Immature Granulocytes Abs Auto 0.05 K/uL (0.00-0.30); Immature Granulocytes Pct Auto 0.7 %; Lymphocytes Absolute Auto 1.94 K/uL (0.90-2.90); Lymphocytes Percent Auto 26.7 % (20-44); Mean Corpuscular HGB Conc 32 gm/dL (32-36); Mean Corpuscular Hemoglobin 32 pg (26-34); Mean Corpuscular Volume 101 fL (80-100); Monocytes Percent Auto 6.6 % (0.0-11.0); Neutrophils Absolute Auto 4.75 K/uL (1.7-7.0); Neutrophils Percent Auto 65.4 % (42.0-72.0); Platelet Count* 294 K/uL (140-440); RDW Coefficient of Variation % 13.4 % (11.5-15.5); Red Blood Count 4.12 m/uL (4.00-5.20); White Blood Count* 7.26 K/uL (4.50-11.00)
[2024-06-12 11:28] LABS: Slide Review Reflex No
[2024-07-09 10:05] LABS: Basophils Absolute Auto 0.04 K/uL (0.00-0.30); Basophils Percent Auto 0.7 % (0.0-3.0); Hematocrit 39.9 % (33.0-51.0); Hemoglobin* 12.6 gm/dL (12.0-16.0); Immature Granulocytes Abs Auto 0.01 K/uL (0.00-0.30); Immature Granulocytes Pct Auto 0.2 %; Lymphocytes Absolute Auto 1.73 K/uL (0.90-2.90); Lymphocytes Percent Auto 31.5 % (20-44); Mean Corpuscular HGB Conc 32 gm/dL (32-36); Mean Corpuscular Hemoglobin 33 pg (26-34); Mean Corpuscular Volume 103 fL (80-100); Monocytes Percent Auto 7.5 % (0.0-11.0); Neutrophils Absolute Auto 3.31 K/uL (1.7-7.0); Neutrophils Percent Auto 60.1 % (42.0-72.0); Platelet Count* 241 K/uL (140-440); RDW Coefficient of Variation % 13.8 % (11.5-15.5); Red Blood Count 3.86 m/uL (4.00-5.20)
[2024-07-09 10:06] LABS: Slide Review Reflex No
[2024-08-06 14:25] LABS: Basophils Absolute Auto 0.02 K/uL (0.00-0.30); Basophils Percent Auto 0.3 % (0.0-3.0); Eosinophils Absolute Auto 0.01 K/uL (0.00-0.50); Eosinophils Percent Auto 0.2 % (0.0-7.0); Hematocrit 39.5 % (33.0-51.0); Hemoglobin* 12.6 gm/dL (12.0-16.0); Lymphocytes Absolute Auto 2.01 K/uL (0.90-2.90); Mean Corpuscular HGB Conc 32 gm/dL (32-36); Mean Corpuscular Hemoglobin 33 pg (26-34); Mean Corpuscular Volume 102 fL (80-100); Neutrophils Absolute Auto 3.25 K/uL (1.7-7.0); Neutrophils Percent Auto 56.5 % (42.0-72.0); Platelet Count* 227 K/uL (140-440); RDW Coefficient of Variation % 13.1 % (11.5-15.5); Red Blood Count 3.88 m/uL (4.00-5.20); White Blood Count* 5.75 K/uL (4.50-11.00)
[2024-08-06 14:27] LABS: Slide Review Reflex No
[2024-09-04 11:12] LABS: Basophils Absolute Auto 0.03 K/uL (0.00-0.30); Basophils Percent Auto 0.4 % (0.0-3.0); Hematocrit 40.7 % (33.0-51.0); Hemoglobin* 12.8 gm/dL (12.0-16.0); Immature Granulocytes Abs Auto 0.01 K/uL (0.00-0.30); Immature Granulocytes Pct Auto 0.1 %; Lymphocytes Absolute Auto 1.65 K/uL (0.90-2.90); Lymphocytes Percent Auto 24.6 % (20-44); Mean Corpuscular HGB Conc 31 gm/dL (32-36); Mean Corpuscular Hemoglobin 33 pg (26-34); Mean Corpuscular Volume 104 fL (80-100); Monocytes Percent Auto 7.3 % (0.0-11.0); Neutrophils Absolute Auto 4.52 K/uL (1.7-7.0); Neutrophils Percent Auto 67.6 % (42.0-72.0); Platelet Count* 239 K/uL (140-440); Red Blood Count 3.91 m/uL (4.00-5.20)
[2024-09-04 11:14] LABS: Slide Review Reflex No
== END 2024-09-09 14:46 | disposition home or self-care (01) ==
LOC: LAB 10:34
PROVIDERS: PCP Internal Medicine; Visit Provider Registered Nurse Psychiatric/Mental Health
DX: R41.3 Other amnesia (principal); Z79.899 Other long term (current) drug therapy; F40.298 Other specified phobia
CPT/HCPCS: 36415; 80048; 84443; 85025

== ENCOUNTER 2025-08-31 09:31 | Outpatient (CLI) | payer MEDICARE, BC, SELFPAY | END 2025-08-31 09:32 | disposition home or self-care (01) | PROVIDERS: PCP Internal Medicine; Visit Provider Internal Medicine | DX: Z13.9 Encounter for screening, unspecified (principal); E03.9 Hypothyroidism, unspecified | CPT/HCPCS: 80053; 80061; 84443 ==

== ENCOUNTER 2025-10-12 12:59 | Outpatient (CLI) | payer MEDICARE, BC, SELFPAY ==
--- NOTE | 2025-10-12 13:20 | CRLHL7_ITS ---
For Patients: As a result of the Century Cures Act, medical imaging exams and procedure reports are released immediately into your electronic medical record. You may view this report before your referring provider. If you have questions, please contact your health care provider. INDICATION: BILATERAL SCREENING MAMMOGRAM, ASYMPTOMATIC 60 Y/O FEMALE COMPARISON: 06/28/2015, 06/22/2014 TECHNIQUE: Digital mammogram in CC and MLO projections including computer-aided detection (CAD) and tomosynthesis. BREAST COMPOSITION: There are scattered areas of fibroglandular density. FINDINGS: No suspicious findings. ASSESSMENT: BI-RADS 1 Negative RECOMMENDATION: Annual screening mammogram. A lay language report of this examination will be provided to the patient. Dictated by: Db Lemon MD @ 10/13/2025 08:35:44 (Electronically Signed)
== END 2025-10-12 13:00 | disposition home or self-care (01) ==
LOC: MAMMO 13:00
PROVIDERS: PCP Internal Medicine; Visit Provider Internal Medicine
DX: Z12.31 Encounter for screening mammogram for malignant neoplasm of breast (principal)
CPT/HCPCS: 77063; 77067

== ENCOUNTER 2025-11-18 12:04 | Outpatient (CLI) | payer MEDICARE, BC, SELFPAY ==
--- NOTE | 2025-11-18 13:42 | P.ANES_ITS ---
Anesthesia Charges Start Date/Time Anesthesia Start Date: 11/18/25 Anesthesia Start Time: 13:00 Stop Date/Time Anesthesia Stop Date: 11/18/25 Anesthesia Stop Time: 13:35 Coding CPT Codes CPT Codes: ANES LWR INTST NDSC NOS - 50749 ([id number]) P3 - PATIENT W/SEVERE SYS DISEASE, QK - FOOTBALL PAD REPAIRER 2-4 CNCRNT ANES PROC
--- NOTE | 2025-11-18 13:42 | W.ANESCHARGE ---
Anesthesia Charges Start Date/Time Anesthesia Start Date: 11/18/25 Anesthesia Start Time: 13:00 Stop Date/Time Anesthesia Stop Date: 11/18/25 Anesthesia Stop Time: 13:35 Coding CPT Codes CPT Codes: ANES LWR INTST NDSC NOS - 48769 ([id number]) P3 - PATIENT W/SEVERE SYS DISEASE, QK - ELECTORAL OFFICER 2-4 CNCRNT ANES PROC
--- NOTE | 2025-11-18 14:27 | P.ANES_ITS ---
Anesthesia Charges Start Date/Time Anesthesia Start Date: 11/18/25 Anesthesia Start Time: 13:00 Stop Date/Time Anesthesia Stop Date: 11/18/25 Anesthesia Stop Time: 13:35 Coding CPT Codes CPT Codes: ANES LWR INTST NDSC NOS - 95169 ([id number]) QK - RN TRAVELING 2-4 CNCRNT ANES PROC, QX - FIELD IDENTIFICATION SPECIALIST SVC W/ MED DIRECTION, P3 - PATIENT W/SEVERE SYS DISEASE
--- NOTE | 2025-11-18 14:27 | W.ANESCHARGE ---
Anesthesia Charges Start Date/Time Anesthesia Start Date: 11/18/25 Anesthesia Start Time: 13:00 Stop Date/Time Anesthesia Stop Date: 11/18/25 Anesthesia Stop Time: 13:35 Coding CPT Codes CPT Codes: ANES LWR INTST NDSC NOS - 45965 ([id number]) QK - GLAZIER SUPERVISOR 2-4 CNCRNT ANES PROC, QX - MANAGER AIR SVC W/ MED DIRECTION, P3 - PATIENT W/SEVERE SYS DISEASE
== END 2025-11-18 12:05 | disposition home or self-care (01) ==
LOC: OP CLINIC 12:08
PROVIDERS: PCP Internal Medicine; Visit Provider Surgery
DX: Z12.11 Encounter for screening for malignant neoplasm of colon (principal); Z12.0 Encounter for screening for malignant neoplasm of stomach; D12.2 Benign neoplasm of ascending colon; D12.3 Benign neoplasm of transverse colon
CPT/HCPCS: 00811; 00812; 45385; J2704